=== PATIENT | female | born 1980 | race Caucasian/White ===

== ENCOUNTER → 2017-08-23 13:07 | Outpatient (CLI) | payer OTHER, MEDICAID, SELFPAY ==
--- NOTE | 2017-08-23 | DI.US.S_ITS ---
PROCEDURE: US OB >= 14 WEEKS FETUS INDICATIONS: 20 WEEK ANATOMIC SURVEY OUTSIDE/PRIOR DATING DATA: Last menstrual period (LMP): 03/14/2018. LMP-based estimated date of delivery (FARHAN): 12/19/2017. First dating scan (date and location): 05/17/2017. Estimated date of delivery (FARHAN) from first dating scan: 12/30/2017. TECHNIQUE: Real-time scanning was performed of the fetus, with image documentation and biometric measurements. Endovaginal scanning: None required COMPARISON: [facility], , OB COMPLETE 14WKS OR MORE, 07/26/2017, 15:22. FINDINGS: General: A single living intrauterine gestation is present. Presentation: Transverse, head to the maternal right. Placenta: Placental position is anterior, without previa. Amniotic fluid index: 16.1 cm, normal range is 5-24 cm. heart rate: 133 beats per minute. Maternal cervical canal: 5.6 cm long. Normal lower limit is 2.5 cm. biometrics: Biparietal diameter: 22 weeks 6 days Head circumference: 23 weeks one day Abdominal circumference: 23 weeks Femur length: 23 weeks 3 days Estimated gestational age from initial scan: 21 weeks 4 days Composite gestational age from present scan: 23 weeks one day Estimated weight and percentile: 566 g at the 99th percentile Measurement variability for biometric dating: +/- 7 days from 14 weeks to 15 weeks 6 days gestation, +/- 10 days from 16 weeks to 21 weeks 6 days gestation, +/- 2 weeks from 22 weeks to 27 weeks 6 days gestation, +/- 3 weeks for 28 weeks gestation or later. weight reference: 4500 g or EFW >90/95% is considered macrosomia or large for gestational age. EFW <10% is small for gestational age. EFW 5% or less is considered intra-uterine growth restriction. Anatomic survey: Neuro: Ventricles are non-dilated at less than 10 mm. Cisterna magna is normal at 3-11 mm. Cerebellum is normal in size and morphology. Nuchal skin fold: Normal at less than 6 mm between 14-21 weeks gestational age. Face: Nose and lips, facial profile are not well seen. Spine: No evidence for spina bifida. Heart: 4-chambered heart is present, with normal ventricular outflow tracts. Diaphragm: Diaphragm is intact. Stomach: Left-sided stomach is present. Kidneys: No hydronephrosis. Normal is less than 5 mm in 2nd trimester, less than 7 mm in 3rd trimester. Cord: 3-vessel cord has orthotopic insertion. Bladder: Normal in size. Extremities: All 4 extremities identified. IMPRESSION: Single, live intrauterine gestation in transverse lie, showing composite gestational age of 23 weeks one day and body weight the 99th percentile. anatomy is normal except facial profile not well seen Dictated by: Cole William M.D. on 08/23/2017 at 14:21 Approved by: Cole William M.D. on 08/23/2017 at 14:24
== END ==
PROVIDERS: Visit Provider Obstetrics & Gynecology
DX: Z34.92 Encounter for supervision of normal pregnancy, unspecified, second trimester (principal); Z3A.23 23 weeks gestation of pregnancy
CPT/HCPCS: 76811

== ENCOUNTER → 2017-09-20 13:30 | Outpatient (CLI) | payer OTHER, MEDICAID, SELFPAY ==
[2017-09-20 14:58] LABS: Hematocrit 27.4 % (36-46); Hemoglobin 8.9 g/dL (12.0-16.0)
[2017-09-20 16:00] LABS: GTT (PREG) 1 Hour PP 50gm Dose 91 mg/dL (76-139)
== END ==
PROVIDERS: Visit Provider Obstetrics & Gynecology
DX: Z34.82 Encounter for supervision of other normal pregnancy, second trimester (principal)
CPT/HCPCS: 36415; 82950; 85014; 85018

== ENCOUNTER → 2017-12-07 12:28 | Outpatient (CLI) | payer OTHER, MEDICAID, SELFPAY ==
[2017-12-08 16:53] LABS: Strep Grp B PCR POS for Grp B Strep
== END ==
PROVIDERS: Visit Provider Obstetrics & Gynecology
DX: Z34.80 Encounter for supervision of other normal pregnancy, unspecified trimester (principal)
CPT/HCPCS: 87653

== ENCOUNTER 2017-12-23 07:11 | Inpatient (IN) | payer OTHER, MEDICAID, SELFPAY ==
[2017-12-23] MEDS: miSOPROStol 25 MCG TABLET VAG (08:30)
[2017-12-23] MEDS: PENICILLIN G POTASSIUM 5,000,000 UNIT in DEXTROSE 5% IN WATER 250 ML IV (09:25)
[2017-12-23 10:10] LABS: Add Manual Diff / Slide Review NO; Basophils Percent Auto 0.5 % (0-2); Hematocrit 25.7 % (36-46); Lymphocytes Percent Auto 19.3 % (25-40); Mean Corpuscular HGB Conc 31.3 % (30-36); Mean Corpuscular Hemoglobin 21.2 PG (26-34); Mean Corpuscular Volume 67.9 fL (80-100); Monocytes Percent Auto 6.1 % (3-14); Neutrophils Absolute Auto 6000 /uL (3000-5900); Neutrophils Percent Auto 73.1 % (50-75); Platelet Count 230 X10^3/uL (150-400); Red Blood Cell Count 3.78 X10^6/uL (4.0-5.2); Red Cell Distribution Width 16.2 % (11.6-14.8); White Blood Cell Count 8.2 X10^3/uL (4.5-11.0)
[2017-12-23 10:33] LABS: Anisocytosis 1+; Hypochromasia 1+; Microcytosis 1+; Polychromasia 2+
[2017-12-23 11:03] VITALS: BP 99/57
[2017-12-23] MEDS: PENICILLIN G POTASSIUM 3,000,000 UNIT/50 ML FROZ.PIGGY 100 UNIT IV ×3 (13:30→21:45)
[2017-12-23] MEDS: OXYTOCIN PREMIX 30 UNIT/500 ML PLAST..BAG IV (14:06)
[2017-12-23] MEDS: LACTATED RINGERS 1,000 ML 125 ML IV (18:22)
[2017-12-23] MEDS: LACTATED RINGERS 1,000 ML 100 ML IV (21:47)
[2017-12-24] MEDS: PENICILLIN G POTASSIUM 3,000,000 UNIT/50 ML FROZ.PIGGY 100 UNIT IV (01:00)
--- NOTE | 2017-12-24 02:32 | PM.OBPRVD ---
Delivery date: 12/24/17 Intrapartal events: Intolerance Induction method: per pitocin protocol Delivery augmentation: rupture of membranes Delivery monitor: external FHT and external uterine Route of delivery: vacuum extraction Indication for instrumentation: nonreassuring FHR tracing Episiotomy description: None Laceration description: Perineal - 2nd Degree Delivery repair: vicryl and chromic Estimated blood loss (mL): 250 Anesthesia type: Epidural Complications: None Narrative: Patient complete and pushed with 3 contractions. Vacuum applied due to deep variable decelerations. At 1:41 a.m., a live male infant delivered spontaneously over an intact perineum. The remainder of the body delivered without difficulty and was placed on mom's abdomen. There was a compound presentation with the left arm. The cord was double clamped and cut. Cord bloods were obtained. The placenta delivered intact with a 3 vessel cord at 1:45 a.m.. Pitocin was given in the IV fluids prior to placental delivery. A second-degree perineal/vaginal laceration was repaired in the usual fashion. Apgars 8 at 1 min and 9 at 5 min. Mom is breast and bottle-feeding. Estimated blood loss 250 cc. Hemostasis achieved on the repair. Mom and infant stable to recovery. Plan for aftercare: Routine care
--- NOTE | 2017-12-24 02:35 | P.PCNOB_ITS ---
Delivery date: 12/24/17 Intrapartal events: Intolerance Induction method: per pitocin protocol Delivery augmentation: rupture of membranes Delivery monitor: external FHT and external uterine Route of delivery: vacuum extraction Indication for instrumentation: nonreassuring FHR tracing Episiotomy description: None Laceration description: Perineal - 2nd Degree Delivery repair: vicryl and chromic Estimated blood loss (mL): 250 Anesthesia type: Epidural Complications: None Narrative: Patient complete and pushed with 3 contractions. Vacuum applied due to deep variable decelerations. At 1:41 a.m., a live male infant delivered spontaneously over an intact perineum. The remainder of the body delivered without difficulty and was placed on mom's abdomen. There was a compound presentation with the left arm. The cord was double clamped and cut. Cord bloods were obtained. The placenta delivered intact with a 3 vessel cord at 1: 45 a.m.. Pitocin was given in the IV fluids prior to placental delivery. A second-degree perineal/vaginal laceration was repaired in the usual fashion. Apgars 8 at 1 min and 9 at 5 min. Mom is breast and bottle-feeding. Estimated blood loss 250 cc. Hemostasis achieved on the repair. Mom and infant stable to recovery. Plan for aftercare: Routine care
[2017-12-24] MEDS: IBUPROFEN 600 MG TABLET PO ×4 (04:37→22:18)
[2017-12-24] MEDS: LEVOTHYROXINE 25 MCG TABLET PO (08:01)
[2017-12-24] MEDS: LEVOTHYROXINE 150 MCG TABLET PO (08:01)
[2017-12-24] MEDS: PRENATAL VIT,CALC/IRON/FOLIC 1 TABLET 1 TAB PO (09:14)
[2017-12-24] MEDS: DOCUSATE 250 MG CAPSULE PO (09:14)
[2017-12-24 22:18] VITALS: TEMP 36.6
[2017-12-25 05:46] VITALS: TEMP 36.6
[2017-12-25] MEDS: IBUPROFEN 600 MG TABLET PO ×2 (05:46→12:08)
[2017-12-25] MEDS: LEVOTHYROXINE 150 MCG TABLET PO (05:47)
[2017-12-25] MEDS: LEVOTHYROXINE 25 MCG TABLET PO (05:47)
[2017-12-25 07:15] LABS: Hematocrit 23.6 % (36-46); Hemoglobin 7.3 g/dL (12.0-16.0)
[2017-12-25] MEDS: DOCUSATE 250 MG CAPSULE PO (09:38)
[2017-12-25] MEDS: PRENATAL VIT,CALC/IRON/FOLIC 1 TABLET 1 TAB PO (09:38)
[2017-12-25] MEDS: MEASLES,MUMPS,RUBELLA VACC/PF 0.5 ML VIAL SUBCUT (13:53)
[2017-12-25] MEDS: INFLUENZA VACCINE 0.5 ML SYRINGE IM (13:55)
[2017-12-25 16:26] VITALS: BP 99/57; PULSE 83; RESP 16; TEMP 36.6
--- NOTE | 2017-12-30 17:08 | P.HPOB_ITS ---
OB HPI Date/Time Date of admission: 12/23/17 Date Patient Seen: 12/23/17 Time Patient Seen: 08:30 History of Present Condition Chief complaint: LABOR AND DELIVERY : 4 Para: 3 Estimated Date of Delivery: 12/30/17 Estimated Gestational Age (weeks): 39+ 1 Narrative: Allison Craven is a 37 year old female 4 para 3 at 39-,1/7 weeks gestation for induction of labor Indications Operative indications ( section): Previous forcep History of Present care: good care, initiated at week # (7), number of visits (11) and pounds weight gain (0) Dating criteria: LMP confirmed by 1st trimester US Ultrasounds: normal 1st trimester US and normal mid trimester US Obstetrical complications: other (Morbid obesity) Medical complications: none Preadmission Labs Blood type: B (+) positive -: Antibody screen: negative, GBS status: positive, HBsAG: negative, HIV: negative, HSV 1: negative, HSV 2: positive and RPR/VDLR: negative -: Chlamydia screen: not detected and Gonorrhea screen: not detected -: Rubella: not immune and Varicella: immune HCT: 27.4 HCAB: negative PAP: Normal Quad screen: Normal Urine: Negative 1 hr GTT: 91 Prior (ies) History: 2 forcep assisted deliveries, 1 vacuum assisted delivery Evaluation Evaluation Baseline heart rate: 120 Variability: Moderate (11-25) monitor accelerations: Present monitor decelerations: Absent Category of Tracing: I Cervical dilation (cm): 1 Cervical effacement (%): 80 station: -2 Laboratory results: Laboratory Tests 12/23/17 12/23/17 12/25/17 08:30 09:59 06:42 WBC 8.2 RBC 3.78 L Hgb 8.0 L 7.3 L Hct 25.7 L 23.6 L MCV 67.9 L MCH 21.2 L MCHC 31.3 RDW 16.2 H Plt Count 230 Neut % (Auto) 73.1 Lymph % (Auto) 19.3 L [place] % (Auto) 6.1 Eos % (Auto) 1.0 L Baso % (Auto) 0.5 Neut # (Auto) 6000 H RBC Morphology Not Reportable Polychromasia 2+ H Hypochromasia 1+ H Anisocytosis 1+ H Microcytosis 1+ H Blood Type B Positive Antibody Screen Negative PFSH Medical History Hypothyroidism (Chronic) Psoriasis (Chronic) Surgical History History of third molar tooth extraction (Resolved) Status post breast reduction (Resolved) Social History Smoking Status: Never smoker Meds Home Medications Medication Instructions Recorded Confirmed Type ibuprofen 600 mg PO Q6HP PRN #30 tab 11/23/15 Rx levothyroxine 0.175 mg PO QAM #30 tab 03/12/17 Rx ondansetron [Zofran ODT] 4 mg SUBLINGUAL Q6HP PRN #20 odt 07/08/17 Rx docusate sodium 250 mg capsule 250 mg PO DAILY #60 cap 09/21/17 Rx ferrous sulfate 324 mg (65 mg 324 mg PO BID #120 tab 09/21/17 Rx iron) tablet,delayed release fluconazole 200 mg tablet 200 mg PO DAILY #1 tab 12/16/17 Rx Allergies Allergy/AdvReac Type Severity Reaction Status Date / Time No Known Drug Allergies Allergy Verified 12/23/17 08:49 Exam Vital Signs (past 8 hours): Generally: A well-developed, well-nourished white female, no acute distress Lungs: Clear to auscultation bilaterally Cardiovascular: Regular rate and rhythm Fundal height: 42 cm Estimated weight: 7 1/2 # Extremities: Psoriasis. 1+ edema, negative Homans Objective Labs Result Diagrams: 12/25/17 06:42 Assessment and Plan (1) 39 weeks gestation of : Current visit: No Status: Acute Plan: Plan: Assessment: 37-year-old 4 para 3 at 39 weeks gestation for induction of labor secondary to previous 3 operative deliveries Plan: Pitocin per protocol 2 Epidural as necessary Expected management to spontaneous vaginal delivery
--- NOTE | 2017-12-30 17:10 | PM.OBDS.1 ---
Discharge Providers Date of admission: 12/23/17 07:11 Consults: 12/24/17 02:28 Consult to [facility] Routine Comment: Discharge provider: Lizette Ochoa MD Discharge Date: 12/25/17 Summary Date Patient Seen: 12/25/17 Time Patient Seen: 11:00 Hospital Course: Patient is a 37-year-old 4 para 4 who presented for induction of labor on 12/23/2017. She had a slow course of labor and finally progressed to complete dilation at 1:20 a.m. on 04/24/2017. She had a vacuum assisted delivery due to deep variable decelerations with pushing. Her course was unremarkable. Peripartum Data Infant Delivery Method: Assisted Delivery (Vacuum) Laceration description: Vaginal - 2nd Degree Episiotomy description: None Procedures: Vacuum assisted vaginal delivery Pitocin induction of labor Epidural analgesia complications: none Discharge Diagnosis (1) 39 weeks gestation of : Status: Acute Status at Discharge Functional status at discharge: independent ambulation Overall status at discharge: patient is progressing back to baseline Time Spent with Patient Total time spent providing and/or coordinating discharge services: Less than 30 minutes Objective Labs Result Diagrams: 12/25/17 06:42 Discharge Plan Discharge Plan Patient Disposition: Home Discharge comment: Call with fever, chills or bleeding vaginally more than a pad in an hour Discharge Med Rec/Prescriptions Prescriptions: No Action ibuprofen 600 MG tablet 600 mg PO Q6HP PRNQty: 30 RF: 0 levothyroxine 175 MCG tablet 0.175 mg PO QAM Qty: 30 RF: 0 ondansetron [Zofran ODT] 4 MG tablet,disintegrating 4 mg Sublingual Q6HP PRNQty: 20 RF: 2 ferrous sulfate 324 mg (65 mg iron) tablet,delayed release (DR/EC) 324 mg PO BID Qty: 120 RF: 3 docusate sodium [Stool Softener] 250 mg capsule 250 mg PO DAILY Qty: 60 RF: 3 fluconazole 200 mg tablet 200 mg PO DAILY Qty: 1 RF: 1 Follow up/Referrals: Lizette Ochoa MD [Physician] - 6 Weeks ('s office will call you on Wednesday to schedule an appointment.) Provider Discharge Instructions Diet: Diet as Tolerated Activity: No intercourse Skin/Wound/Dressing Care Report to your healthcare provider any signs of infection, such as:: chills, fever, increased pain and unusual drainage Visit Report/Discharge Packet Instructions: DI for Labor and Delivery, Vaginal Visit Report Forms: Stroke Signs & Symptoms Discharge Data Attending Provider: Lizette Ochoa Admit Date/Time: 12/23/17 07:11 Discharges patient from system. Discharge Date/Time: 12/25/17 14:30
== END 2017-12-25 14:30 | disposition home or self-care (01) | DRG 560 ==
PROVIDERS: Admitting Provider Obstetrics & Gynecology; Visit Provider Obstetrics & Gynecology
DX: O99.824 Streptococcus B carrier state complicating childbirth (principal); Z3A.39 39 weeks gestation of pregnancy; Z37.0 Single live birth; O70.1 Second degree perineal laceration during delivery; O76 Abnormality in fetal heart rate and rhythm complicating labor and delivery
CPT/HCPCS: 01967; 36415; 59050; 59200; 59409; 85014; 85018; 85025; 86850; 86900; 86901; 90471; 90656; G0379; J2540; J2590; Q2038